=== PATIENT | male | born 1980 | race Caucasian/White ===

== ENCOUNTER 2018-12-22 16:03 | Inpatient (IN) ==
--- OUTSIDE RECORDS SUMMARY | 2018-12-22 16:06 | External Medical Summary | Continuity of Care Document ---
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) Raynaud's disease (443.0) (I73.00) Allergies and Adverse Reactions No Known Drug Allergies (Allergy) Medications Naproxen 500 MG Oral Tablet; TAKE TABLET PRN Refills: 0 Suboxone 12-3 MG Sublingual Film Start: 29-Sep-2015 Refills: 0 Procedures History of Oral Surgery Tooth Extraction Status: Completed Immunizations Immunizations not documented Family History Unknown Family Member Family history of Cancer Status: Active Comments: Famil y History Family history of Diabetes Mellitus (V18.0) Status: Active Comments: Family History Father Family history of Patient's father is in good health Status: Active Mother Family history of Patient's mother is in good health Status: Active Social History - Smoking Status Smoker. current status unknown Plan of Treatment Planned Observations Planned Goals not documented Results No Known Results Results not documented
--- NOTE | 2018-12-22 16:43 | Emergency Department Note ---
History of Present Illness General Chief complaint: Eye Problems Stated complaint: RIGHT EYE SWOLLEN Time Seen by Provider: 12/22/18 16:28 History of Present Illness Maximum Pain Intensity: 2 This is a 37-year-old male that presents to the emergency department via private vehicle with complaints of "right eye swollen". The patient states that yesterday he began with swelling around 6 PM on the right side of the face. He notes that he has poor dentition. He states that it is rapidly progressed and then when he awoke today the entire right eye was swollen. He did take Benadryl with some minimal swelling relief. He denies any trauma, injury, fevers, chills. He notes very minimal pain, noting that his only pain is in the mouth at a tooth that he thinks may have caused this but otherwise has no pain on the face. He denies any pain with moving the eyes. No vomiting. Home Medications Home Medications Medication Instructions Recorded Confirmed Type diphenhydramine HCl [Benadryl] 50 mg PO DIRECTED PRN 12/22/18 12/22/18 History Allergies Allergy/AdvReac Type Severity Reaction Status Date / Time bee venom protein (honey bee) Allergy Severe ANAPHYLAXIS Verified 12/22/18 16:34 Past Med/Surg History Medical History Pneumothorax on left (Resolved) Surgical History No pertinent past surgical history Social History Preferred Language: Surinamese Communication Ability: Effective Qa Tester Required: No Beliefs That Will Affect Care: None Current Living Situation: Family Other Information That Helps Us Care for You: No Feels Safe at Home: Yes Safety Concerns: Feels Safe At This Time Smoking Status: Current every day smoker Tobacco Type: cigarettes Cigarettes Per Day: 3-5 Do You Dip or Chew Tobacco: No Second Hand Exposure: No Tobacco Cessation Education Requested by Patient: No Hx Alcohol Use: No Hx Substance Use: No Review of Systems A total of 10 systems reviewed and were otherwise negative Physical Exam Vital Signs Vital Signs - 24 hr 12/22/18 16:06 12/22/18 17:30 12/22/18 18:30 Temperature 36.9 C Temperature Source Oral Sepsis Recent Fever Within 48 Hours No Sepsis New/Unexplained Change in Mental Status No Sepsis Action Taken by Nursing No Action Required Pulse Rate 87 Pulse Rate [Radial] 87 85 Pulse Rhythm [Radial] Regular Regular Pulse Strength Normal Respiratory Rate 18 18 18 Respiratory Effort / Characteristics Non-Labored Non-Labored Non-Labored Respiratory Depth Normal Normal Normal Respiratory Pattern Regular Regular Regular Blood Pressure 131/68 Blood Pressure [Left Arm] 111/68 115/72 Blood Pressure Mean 89 Blood Pressure Mean [Left Arm] 82 86 Blood Pressure Position Sitting Pulse Oximetry 98 98 97 Oxygen Delivery Method Room Air Room Air Room Air 12/22/18 20:00 Temperature Temperature Source Sepsis Recent Fever Within 48 Hours Sepsis New/Unexplained Change in Mental Status Sepsis Action Taken by Nursing Pulse Rate Pulse Rate [Radial] 74 Pulse Rhythm [Radial] Regular Pulse Strength Respiratory Rate 16 Respiratory Effort / Characteristics Non-Labored Respiratory Depth Normal Respiratory Pattern Regular Blood Pressure Blood Pressure [Left Arm] 107/66 Blood Pressure Mean Blood Pressure Mean [Left Arm] 79 Blood Pressure Position Pulse Oximetry 100 Oxygen Delivery Method Room Air VITAL SIGNS - Vital signs and nursing notes were reviewed. Stable and afebrile. GENERAL -37-year-old male appearing his stated age who is in no acute distress. Communicates well with provider and answers questions appropriately. SKIN -there is edema to the right side of the face noted extending from the right side of the mouth up to the inferior right eye region. No fluctuance. HEAD - NC/AT. EYES - PERRL with EOMI bilaterally. Sclera anicteric. No pain with EOMs noted. The right eye is unremarkable itself but the surrounding tissue is edematous inferiorly. EARS - No deformities of external structures noted on gross examination b ilaterally. No evidence of otitis media. NOSE - Midline and without cyanosis. No epistaxis or purulent drainage noted. Septum midline without deviation or septal hematoma noted. MOUTH/OROPHARYNX - Without perioral cyanosis. Buccal mucosa pink and moist and without leukoplakia. Tongue midline with equal elevation of palate bilaterally. No tonsillar hypertrophy, erythema, or exudates noted. Very poor dentition noted. There is no tenderness on the chin or neck region. No tenderness in the submental space on exam. NECK - Neck with FROM. Supple to palpation. No lymphadenopathy noted. No nuchal rigidity. LUNGS - Chest wall symmetric without accessory muscle use, intercostals retractions, or central cyanosis. Normal vesicular breath sounds CTA B/L. No wheezes, rales, or rhonchi appreciated. CARDIAC - RRR with S1/S2. No murmur, rubs, or gallops appreciated. EXTREMITIES - No clubbing or peripheral cyanosis. No pretibial edema present. +5/5 strength noted in UE/LE bilaterally. NEUROLOGIC - Cranial nerves II through XII grossly intact. PSYCH - A&O, and cooperates fully with examiner. Pt is very pleasant and interacts well with examiner. Course Administered Medications Clindamycin Phosphate 300 mg/ (Dextrose) 52 mls @ 100 mls/hr IV Q6H OSEI Stop: 01/02/19 00:00 Last Infusion: 12/23/18 00:44 Dose: 0 mls/hr Documented by: [id number] Admin: 12/23/18 00:02 Dose: 100 mls/hr Documented by: [id number] Discontinued Medications Sodium Chloride (Nss 1000ml) 1,000 mls @ 999 mls/hr IV .Q1H1M OSEI Stop: 12/22/18 17:45 Last Infusion: 12/22/18 18:26 Dose: 0 mls/hr Documented by: [id number] Admin: 12/22/18 17:19 Dose: 999 mls/hr Documented by: [id number] Ampicillin Sodium/Sulbactam Sodium 3,000 mg/ Sodium Chloride 108 mls @ 200 mls/hr IV NOW STA; Protocol Stop: 12/22/18 20:50 Last Infusion: 12/22/18 22:25 Dose: 0 mls/hr Documented by: [id number] Admin: 12/22/18 21:46 Dose: 200 mls/hr Documented by: [id number] Ioversol (Optiray 320 100ml) 94 ml IV ONCE PRN PRN Reason: Interaction Checking Stop: 12/26/18 19:15 Last Admin: 12/22/18 19:16 Dose: 94 ml Documented by: [id number] Medical Decision Making Laboratory Data Result diagrams: 12/22/18 17:18 12/22/18 17:18 Lab Results 12/22/18 12/22/18 Range/Units 17:18 17:18 WBC 8.21 (4.8-10.8) K/uL RBC 4.85 (4.7-6.1) M/uL Hgb 14.1 (14.0-18.0) g/dL Hct 40.7 L (42-52) % MCV 83.9 (80-100) fL MCH 29.1 (25-34) pg MCHC 34.6 (32-36) g/dL RDW Std Deviation 40.7 (36.4-46.3) fL RDW Coeff of Bashir 13.4 (11.5-14.5) % Plt Count 194 (130-400) K/uL MPV 9.7 (7.4-10.4) fL Immature Gran % (Auto) 0.1 % Neut % (Auto) 55.6 % Lymph % (Auto) 29.5 % [place] % (Auto) 11.0 % Eos % (Auto) 2.9 % Baso % (Auto) 0.9 % Immature Gran # (Auto) 0.01 (0.00-0.02) K/uL Neut # (Auto) 4.57 (1.4-6.5) K/uL Lymph # (Auto) 2.42 (1.2-3.4) K/uL [place] # (Auto) 0.90 H (0.11-0.59) K/uL Eos # (Auto) 0.24 (0-0.5) K/uL Baso # (Auto) 0.07 (0-0.2) K/uL Sodium 139 (136-145) mmol/L Potassium 3.8 (3.5-5.1) mmol/L Chloride 103 (98-107) mmol/L Carbon Dioxide 34 H (21-32) mmol/L Anion Gap 2.0 L (3-11) BUN 9 (7-18) mg/dl Creatinine 1.00 (0.6-1.4) mg/dl Est Cr Clr Drug Dosing 80.9 ml/min Est GFR ( Amer) 110.2 Est GFR (Non-Af Amer) 95.1 BUN/Creatinine Ratio 8.6 L (10-20) Glucose 90 (70-99) mg/dl Calcium 8.8 (8.5-10.1) mg/dl Total Bilirubin 0.5 (0.2-1) mg/dl AST 21 (15-37) U/L ALT 18 (12-78) U/L Alkaline Phosphatase 106 (45-117) U/L Total Protein 7.6 (6.4-8.2) gm/dl Albumin 3.9 (3.4-5.0) gm/dl Globulin 3.7 (2.5-4.0) gm/dl Albumin/Globulin Ratio 1.1 (0.9-2) Imaging Data Radiologist's Impression: CT SCAN OF THE FACIAL BONES WITH IV CONTRAST CLINICAL HISTORY: Right-sided facial edema. COMPARISON STUDY: No priors. TECHNIQUE: High-resolution CT scan of the facial bones is performed following the IV administration of 94 cc of Optiray 320. Images are reviewed in the axial, sagittal, and coronal planes. IV contrast was administered without complication. A dose lowering technique was utilized adhering to the principles of ALARA. CT DOSE: 128.22 mGy.cm FINDINGS: The skeletal structures are well mineralized. There is no evidence of facial bone fracture. The bony orbits are intact and the orbital contents are within normal limits. The zygomatic arches, nasal bones, and pterygoid plates are preserved. The maxilla and mandible are intact. There are no layering blood products within the paranasal sinuses. There is mild to moderate mucosal thickening within the maxillary antra bilaterally, right greater than left. Mild mucosal thickening is seen within the ethmoid sinuses. The remaining paranasal sinuses are clear. The mastoid air cells are well pneumatized. The visualized calvarium and upper cervical spine are maintained. Partially imaged brain parenchyma is within normal limits. The carotid arteries and jugular veins are patent bilaterally. There are numerous dental caries identified. There are large periapical lucencies identified throughout the maxilla involving the molars and premolars bilaterally, as well as the left incisors and bilateral canines. There is cortical breakthrough involving the mandibular molars bilaterally. There is extensive right-sided facial soft tissue edema which extends from the premalar region into the submandibular region. There is mild infiltration of the right sublingual and submental soft tissues. The parapharyngeal fat is maintained. There is phlegmonous change with no organized fluid collection seen to indicate abscess. The airway is clear. Mildly enlarged cervical lymph nodes are likely reactive basis. The salivary glands are normal in appearance. IMPRESSION: 1. There are numerous dental caries. Additionally, there are numerous periapical lucencies throughout the maxillary teeth. There is cortical breakthrough involving the molars bilaterally. Follow-up with dentistry is recommended. 2. There is evidence of extensive right facial cellulitis, likely related to periodontal disease. 3. There is slight no change with no organized fluid collection seen to indicate abscess. 4. There is mild inflammatory stranding involving the right sublingual and submental soft tissues. This may place the patient risk for developing Dakotah's angina. Clinical correlation will be essential. Electronically signed by: Sohail Sepulveda M.D. 12/22/2018 8:06 PM MDM Narrative Patient was seen and evaluated as above in room B3. Review was performed of nursing notes and vital signs. After obtaining a thorough history and physical examination the above work up was performed. He presents to us today with right eye swelling inferiorly. On exam there is concern for facial cellulitis with pending orbital involvement. His vital signs are stable. IV access was established. There is no leukocytosis or emergent anemia. There is no emergent metabolic abnormality. IV Unasyn was ordered. I recommended inpatient management given the extent of the facial cellulitis both on exam and CT. He was in agreement with staying. I talked with the hospitalist. They will admit the patient. These refer to further documentation regarding his stay. In the evaluation and treatment of this patient, the following differential diagnoses were considered: Periapical Abscess, Osteonecrosis of the Jaw, Dental Fracture, Dental Caries, Dakotah's Angina, Vincent's Angina, Facial Cellulitis. Impression & Plan Right facial swelling, Periodontal disease, Cellulitis of face Discharge Plan Visit Data *Final* Discharge Date/Time: 12/22/18 22:31 Chief Complaint: Eye Problems Stated Complaint: RIGHT EYE SWOLLEN ED Provider: Paresh Hidalgo ED Midlevel Provider: Manan Overton Discharge Problem: Right facial swelling, Periodontal disease, Cellulitis of face Patient Disposition: Admitted As Inpatient Condition: Good Discharge Instructions Interventions: ED Discharge Assessment Last Done: 12/22/18 22:31
[2018-12-22] MEDS ORDERED: SODIUM CHLORIDE 0.9% 1000ML 1,000 ML IV SCH (16:45)
[2018-12-22 17:24] LABS: Basophils # (auto) 0.07 K/uL (0-0.2); Basophils % (auto) 0.9 %; Eosinophils # (auto) 0.24 K/uL (0-0.5); Eosinophils % (auto) 2.9 %; Hematocrit (blood only) 40.7 % (42-52); Hemoglobin 14.1 g/dL (14.0-18.0); Immature Granulocytes # (auto) 0.01 K/uL (0.00-0.02); Immature Granulocytes % (auto) 0.1 %; Lymphocytes # (auto) 2.42 K/uL (1.2-3.4); Lymphocytes % (auto) 29.5 %; Mean Corpuscular Hgb Conc 34.6 g/dL (32-36); Mean Corpuscular Volume 83.9 fL (80-100); Mean Platelet Volume 9.7 fL (7.4-10.4); Neutrophils # (auto) 4.57 K/uL (1.4-6.5); Neutrophils % (auto) 55.6 %; Platelet Count 194 K/uL (130-400); RDW Coefficient of Variation 13.4 % (11.5-14.5); RDW Standard Deviation 40.7 fL (36.4-46.3); Red Blood Count 4.85 M/uL (4.7-6.1); White Blood Count 8.21 K/uL (4.8-10.8)
[2018-12-22 17:45] LABS: Albumin Level 3.9 gm/dl (3.4-5.0); BUN Creatinine Ratio 8.6 (10-20); Calcium 8.8 mg/dl (8.5-10.1); Creatinine Clr Calc Pharmacy 80.9 ml/min; Est GFR (African American) 110.2; Est GFR (Non-African American) 95.1; Potassium 3.8 mmol/L (3.5-5.1)
[2018-12-22 17:48] LABS: Albumin Globulin Ratio 1.1 (0.9-2); Bilirubin,Total 0.5 mg/dl (0.2-1); Globulin 3.7 gm/dl (2.5-4.0); Total Protein 7.6 gm/dl (6.4-8.2)
[2018-12-22] MEDS ORDERED: IOVERSOL 100ml IV PRN (19:16)
--- NOTE | 2018-12-22 20:08 | CT Scan Report ---
CT SCAN OF THE FACIAL BONES WITH IV CONTRAST CLINICAL HISTORY: Right-sided facial edema. COMPARISON STUDY: No priors. TECHNIQUE: High-resolution CT scan of the facial bones is performed following the IV administration of 94 cc of Optiray 320. Images are reviewed in the axial, sagittal, and coronal planes. IV contrast was administered without complication. A dose lowering technique was utilized adhering to the princi ples of PAYAM. CT DOSE: 128.22 mGy.cm FINDINGS: The skeletal structures are well mineralized. There is no evidence of facial bone fracture. The bony orbits are intact and the orbital contents are within normal limits. The zygomatic arches, nasal bones, and pterygoid plates are preserved. The maxilla and mandible are intact. There are no la yering blood products within the paranasal sinuses. There is mild to moderate mucosal thickening with in the maxillary antra bilaterally, right greater than left. Mild mucosal thickening is seen within t he ethmoid sinuses. The remaining paranasal sinuses are clear. The mastoid air cells are well pneumat ized. The visualized calvarium and upper cervical spine are maintained. Partially imaged brain parenc hyma is within normal limits. The carotid arteries and jugular veins are patent bilaterally. There ar e numerous dental caries identified. There are large periapical lucencies identified throughout the m axilla involving the molars and premolars bilaterally, as well as the left incisors and bilateral can kinga. There is cortical breakthrough involving the mandibular molars bilaterally. There is extensive right-sided facial soft tissue edema which extends from the premalar region into the submandibular re gion. There is mild infiltration of the right sublingual and submental soft tissues. The parapharynge al fat is maintained. There is phlegmonous change with no organized fluid collection seen to indicate abscess. The airway is clear. Mildly enlarged cervical lymph nodes are likely reactive basis. The sa livary glands are normal in appearance. IMPRESSION: 1. There are numerous dental caries. Additionally, there are numerous periapical lucencies throughout the maxillary teeth. There is cortical breakthrough involving the molars bilaterally. Follow-up with dentistry is recommended. 2. There is evidence of extensive right facial cellulitis, likely related to periodontal disease. 3. There is slight no change with no organized fluid collection seen to indicate abscess. 4. There is mild inflammatory stranding involving the right sublingual and submental soft tissues. Th is may place the patient risk for developing Dakotah's angina. Clinical correlation will be essential. Electronically signed by: Sohail Sepulveda M.D. 12/22/2018 8:06 PM
[2018-12-22] MEDS ORDERED: AMPICILLIN/SULBACTAM SOD 3,000 MG in 0.9 % SODIUM CHLORIDE 100 ML IV STA (20:18)
--- NOTE | 2018-12-22 21:25 | History & Physical Report ---
Date of Service December 22, 2018 Assessment & Plan (1) Preseptal cellulitis of right eye: 37-year-old male who presents with 1 day history of right facial swelling found to have preseptal cellulitis and significant periodontal disease admitted for IV antibiotics. Face CT shows no abscess. Cellulitis of face, preseptal, likely secondary to periodontal disease -Although presents with preseptal cellulitis and right facial swelling, patient's airway does not seem to be involved and pain is clinically absent. -Patient is not febrile, no leukocytosis, not hypoxic,, not in pain -Plan for IV antibiotics including clindamycin and ceftriaxone -Will need dentistry follow-up in the outpatient setting -Consider ENT/ID evaluation if does not respond to antibiotics. FEN/GI: Regular diet DVT ppx: Lovenox every 12 CODE STATUS: Full code as discussed with patient DISPO: MedSurg. To home on discharge. DC planning ordered to help with follow- up dentistry (2) Periodontal disease: (3) Right facial swelling: History of Present Illness Chief Complaint: Swelling around right eye, periodontal disease untreated Primary Care Provider: NO PCP Isaias is a 37-year-old male who presents with 1 day history of swelling and redness around his right eye. He states that he noticed a tightness in in the right side of his face since yesterday, and that this morning his right eye was almost swollen shut. He admits to problems with dental disease in the past, has had at least 3 teeth pulled and several others have fallen or broken off independently. He states that from time to time he has had facial swelling that he assumed was due to his teeth, that has self resolved in the past. He denies any change in his vision. He denies any pain associated with the swelling including no eye pain no dental pain no throat pain or neck pain. He has had no fevers at home. He denies any headaches. Denies any difficulty breathing or weakness in his extremities. His appetite is normal. ED course: Unasyn IV x1. Face CT showing right facial cellulitis with no abscess. Past medical history: Teeth extractions. He is on no medications. Surgical history: As above. Social history: He lives with his girlfriend. He denies alcohol use or illicit drug use. He smokes 1 to 2 cigarettes/day. He is self-employed. 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 Beliefs That Will Affect Care: None Current Living Situation: Family Other Information That Helps Us Care for You: No Feels Safe at Home: Yes Safety Concerns: Feels Safe At This Time Smoking Status: Current every day smoker Tobacco Type: cigarettes Cigarettes Per Day: 3-5 Do You Dip or Chew Tobacco: No Second Hand Exposure: No Tobacco Cessation Education Requested by Patient: No Hx Alcohol Use: No Hx Substance Use: No Review of Systems Review of Systems: All systems reviewed & are unremarkable except as noted in HPI & below Physical Exam Physical Exam: His girlfriend accompanies him at the bedside. Vitals noted and within normal limits GENERAL: Awake, alert to person, place, and time, nontoxic-appearing, in no distress. HENT: Right-sided facial swelling noted, atraumatic. Mucus membranes appear moist. Very poor dentition with several teeth absent. Uvula is not displaced, no tonsillar swelling, pharynx is within normal limits. EYES: Normal conjunctiva. Sclera non-icteric. EOMI. PERRLA. NECK: Supple. Full range of motion. No JVD. No palpable lymphadenopathy. RESPIRATORY: Clear to auscultation. Normal work of breathing. CARDIAC: Regular rate, normal rhythm. Extremities warm and well perfused, 2+ radial pulses bilaterally; 2+ posterior tibialis pulses bilaterally. ABDOMEN: Soft, non-distended. No tenderness to palpation in all four quadrants. No rebound or guarding. No masses. Bowel sounds are normal. NEURO: No gross focal motor deficits noted. Sensation in tact. CN II-XII grossly in tact. . SKIN: Mildly erythematous and swelling noted in the right periorbital space as well as his right cheek, no fluctuance. No jaundice noted. PSYCH: Appropriate mood and affect. Cooperative. Exam as done by Cleo Pool MD, Telephone Directory Distributor Driver. Results & Data Vital Signs (Past 12 Hours) Vital Signs Temp Pulse Pulse Resp BP BP Pulse Ox 12/22/18 18:30 85 18 115/72 97 12/22/18 17:30 87 18 111/68 98 12/22/18 16:06 36.9 C 87 18 131/68 98 Laboratory Results 12/22/18 12/22/18 Range/Units 17:18 17:18 WBC 8.21 (4.8-10.8) K/uL RBC 4.85 (4.7-6.1) M/uL Hgb 14.1 (14.0-18.0) g/dL Hct 40.7 L (42-52) % MCV 83.9 (80-100) fL MCH 29.1 (25-34) pg MCHC 34.6 (32-36) g/dL RDW Std Deviation 40.7 (36.4-46.3) fL RDW Coeff of Bashir 13.4 (11.5-14.5) % Plt Count 194 (130-400) K/uL MPV 9.7 (7.4-10.4) fL Immature Gran % (Auto) 0.1 % Neut % (Auto) 55.6 % Lymph % (Auto) 29.5 % [place] % (Auto) 11.0 % Eos % (Auto) 2.9 % Baso % (Auto) 0.9 % Immature Gran # (Auto) 0.01 (0.00-0.02) K/uL Neut # (Auto) 4.57 (1.4-6.5) K/uL Lymph # (Auto) 2.42 (1.2-3.4) K/uL [place] # (Auto) 0.90 H (0.11-0.59) K/uL Eos # (Auto) 0.24 (0-0.5) K/uL Baso # (Auto) 0.07 (0-0.2) K/uL Sodium 139 (136-145) mmol/L Potassium 3.8 (3.5-5.1) mmol/L Chloride 103 (98-107) mmol/L Carbon Dioxide 34 H (21-32) mmol/L Anion Gap 2.0 L (3-11) BUN 9 (7-18) mg/dl Creatinine 1.00 (0.6-1.4) mg/dl Est Cr Clr Drug Dosing 80.9 ml/min Est GFR ( Amer) 110.2 Est GFR (Non-Af Amer) 95.1 BUN/Creatinine Ratio 8.6 L (10-20) Glucose 90 (70-99) mg/dl Calcium 8.8 (8.5-10.1) mg/dl Total Bilirubin 0.5 (0.2-1) mg/dl AST 21 (15-37) U/L ALT 18 (12-78) U/L Alkaline Phosphatase 106 (45-117) U/L Total Protein 7.6 (6.4-8.2) gm/dl Albumin 3.9 (3.4-5.0) gm/dl Globulin 3.7 (2.5-4.0) gm/dl Albumin/Globulin Ratio 1.1 (0.9-2) Diagnostic Findings Face CT notes numerous dental caries, numerous periapical lucencies throughout the maxillary teeth. Cortical breakthrough involving molars bilaterally. Evidence of right facial cellulitis. No organized fluid collection to indicate abscess. Mild inflammatory stranding involving right sublingual and submental soft tissues which may place the patient at risk for developing Dakotah's angina. Dentistry follow-up recommended. Medications Administered Received Unasyn in the ED. Supervising Physician Co-Signing Physician Notes Attending addendum: I have physically seen this patient, have supervised the medical residents activities, and agree with the H&P unless as otherwise noted. Assessment and Plan: Right facial cellulitis/periodontal disease/dental caries/right sublingual and submental inflammation- Given Unasyn 3 g IV x1 in the ED plus normal saline 1 L. Admit on ceftriaxone and clindamycin IV. Follow clinical examination closely. Patient will need to follow-up with ENT/maxillofacial surgery. Dehydration-give additional liter of normal saline. Remainder orders and notations as noted. PG Care Time/CCT Total # of Minutes Spent Total Time Spent with Patient: Total time spent is greater than 50% in coordination of care (as documented) at patient's floor/unit and/or counseling patient: Resident Activity Tracking Resident Involvement: Resident Care Provided Care Provided: Adult [facility] Medicine
[2018-12-22] MEDS ORDERED: MAGNESIUM HYDROXIDE SUSP 30 ML UDC PO PRN (22:41)
[2018-12-22] MEDS ORDERED: POLYETHYLENE (MIRALAX) 17 GM PACK PO PRN (22:41)
[2018-12-22] MEDS ORDERED: ONDANSETRON INJ 2 MG/ML 2 ML VIAL IV PRN (22:41)
[2018-12-22] MEDS ORDERED: ALUMINUM/MAGNESIUM SUSP 30 ML UDC PO PRN (22:41)
[2018-12-22] MEDS ORDERED: ACETAMINOPHEN 325 MG TAB PO PRN (22:41)
[2018-12-23] MEDS: CLINDAMYCIN 300 MG in DEXTROSE 5% 50 ML IV SCH ×3 (00:02→12:19)
[2018-12-23 05:40] LABS: Basophils # (auto) 0.05 K/uL (0-0.2); Basophils % (auto) 0.6 %; Eosinophils # (auto) 0.29 K/uL (0-0.5); Eosinophils % (auto) 3.6 %; Hematocrit (blood only) 36.7 % (42-52); Hemoglobin 12.3 g/dL (14.0-18.0); Immature Granulocytes # (auto) 0.02 K/uL (0.00-0.02); Immature Granulocytes % (auto) 0.2 %; Lymphocytes # (auto) 2.25 K/uL (1.2-3.4); Lymphocytes % (auto) 27.9 %; Mean Corpuscular Hgb Conc 33.5 g/dL (32-36); Mean Corpuscular Volume 85.9 fL (80-100); Mean Platelet Volume 9.8 fL (7.4-10.4); Monocytes % (auto) 12.4 %; Neutrophils # (auto) 4.45 K/uL (1.4-6.5); Neutrophils % (auto) 55.3 %; Platelet Count 197 K/uL (130-400); RDW Coefficient of Variation 13.7 % (11.5-14.5); RDW Standard Deviation 42.7 fL (36.4-46.3); Red Blood Count 4.27 M/uL (4.7-6.1); White Blood Count 8.06 K/uL (4.8-10.8)
[2018-12-23 05:49] LABS: Prothrombin Time 10.7 Seconds (9.0-12.0)
[2018-12-23 06:09] LABS: BUN Creatinine Ratio 8.2 (10-20); Calcium 7.9 mg/dl (8.5-10.1); Creatinine Clr Calc Pharmacy 90.8 ml/min; Est GFR (African American) 121.9; Est GFR (Non-African American) 105.1; Potassium 3.4 mmol/L (3.5-5.1)
[2018-12-23] MEDS: LACTOBACILLUS ACIDOPHILUS (FLORANEX) TAB PO SCH ×2 (08:33→12:20)
[2018-12-23] MEDS ORDERED: cefTRIAXone SODIUM 1,000 MG in DEXTROSE 5% 50 ML IV SCH (09:00)
[2018-12-23] MEDS ORDERED: ENOXAPARIN INJ 40 MG/0.4 ML SYR SQ SCH (09:00)
--- NOTE | 2018-12-23 09:19 | Hospitalist Progress Note ---
Date of Service December 23, 2018 Assessment & Plan (1) Preseptal cellulitis of right eye: (2) Periodontal disease: (3) Right facial swelling: Results & Data Vital Signs (Past 12 Hours) Vital Signs Temp Pulse Pulse Pulse Resp BP BP 12/23/18 07:23 36.6 C 71 20 12/23/18 02:08 36.8 C 79 16 12/22/18 22:45 36.9 C 68 20 109/70 12/22/18 22:31 65 16 114/70 12/22/18 22:00 62 18 117/72 BP Pulse Ox 12/23/18 07:23 104/65 98 12/23/18 02:08 101/60 98 12/22/18 22:45 98 12/22/18 22:31 99 12/22/18 22:00 100 PG Care Time/CCT Total # of Minutes Spent Total Time Spent with Patient: Total time spent is greater than 50% in coordination of care (as documented) at patient's floor/unit and/or counseling patient:
[2018-12-23] MEDS ORDERED: POTASSIUM CHLORIDE 10 MEQ TABCR PO ONE (09:45)
--- NOTE | 2018-12-23 14:58 | Discharge Summary ---
Date of Service December 23, 2018 Admission HPI Per Admitting Provider Isaias is a 37-year-old male who presents with 1 day history of swelling and redness around his right eye. He states that he noticed a tightness in in the right side of his face since yesterday, and that this morning his right eye was almost swollen shut. He admits to problems with dental disease in the past, has had at least 3 teeth pulled and several others have fallen or broken off independently. He states that from time to time he has had facial swelling that he assumed was due to his teeth, that has self resolved in the past. He denies any change in his vision. He denies any pain associated with the swe lling including no eye pain no dental pain no throat pain or neck pain. He has had no fevers at home. He denies any headaches. Denies any difficulty breathing or weakness in his extremities. His appetite is normal. ED course: Unasyn IV x1. Face CT showing right facial cellulitis with no abscess. Past medical history: Teeth extractions. He is on no medications. Surgical history: As above. Social history: He lives with his girlfriend. He denies alcohol use or illicit drug use. He smokes 1 to 2 cigarettes/day. He is self-employed. Admission Exam Per Admitting Provider Physical Exam: His girlfriend accompanies him at the bedside. Vitals noted and within normal limits GENERAL: Awake, alert to person, place, and time, nontoxic-appearing, in no distress. HENT: Right-sided facial swelling noted, atraumatic. Mucus membranes appear moist. Very poor dentition with several teeth absent. Uvula is not displaced, no tonsillar swelling, pharynx is within normal limits. EYES: Normal conjunctiva. Sclera non-icteric. EOMI. PERRLA. NECK: Supple. Full range of motion. No JVD. No palpable lymphadenopathy. RESPIRATORY: Clear to auscultation. Normal work of breathing. CARDIAC: Regular rate, normal rhythm. Extremities warm and well perfused, 2+ radial pulses bilaterally; 2+ posterior tibialis pulses bilaterally. ABDOMEN: Soft, non-distended. No tenderness to palpation in all four quadrants. No rebound or guarding. No masses. Bowel sounds are normal. NEURO: No gross focal motor deficits noted. Sensation in tact. CN II-XII grossly in tact. . SKIN: Mildly erythematous and swelling noted in the right periorbital space as well as his right cheek, no fluctuance. No jaundice noted. PSYCH: Appropriate mood and affect. Cooperative. Exam as done by Cleo Pool MD, Import/Export Analyst. Principal Diagnosis Right facial cellulitis likely 2nd to maxillary periodontal disease Discharge Exam General: awake, alert, no apparent distress Head: Normocephalic, atraumatic, ENT: PERRL, EOMI, no periorbital edema, + trace right facial edema compared to the left, no pharyngeal exudate, mucous membranes moist, + multiple dental caries, + pinpoint aphthous ulceration on the right buccal membrane, no areas of oral erythema, abscess, or purulent drainage. Chest: Clear to auscultation, on room air, no adventitious breath sounds Cardiac: Regular rate and rhythm, no murmur, no JVD, normal peripheral pulses, good capillary refill Abdominal: NABS x 4 quadrants, soft, nontender to palpation, no rebound, guarding or tenderness Extremities: Normal inspection, no peripheral edema or erythema, calfs nontender to palpation Psych: Normal mood and affect Neuro: AAO x 3, strength intact bilaterally and related 5/5, no motor deficits, speech is clear, no peripheral sensory deficits Discharge Data Allergies Allergy/AdvReac Type Severity Reaction Status Date / Time bee venom protein (honey bee) Allergy Severe ANAPHYLAXIS Verified 12/22/18 16:34 Consultations 12/22/18 20:18 ED Decision to Admit Stat 12/22/18 22:41 Consult Case Management - Discharge Planning Routine Ordered Studies 12/22/18 16:39 CT facial bones w con Stat Hospital Course (1) Periodontal disease: (2) Right facial swelling: (3) Tobacco use: (4) Preseptal cellulitis of right eye: - Clinically improved with IV clindamycin and ceftriaxone - no issues with swallowing, breathing, edema markedly improved. - Continue taking augmentin as directed x next 7 days, first dose starts on 12/24/18. - Referral and application provided to see [facility] for dentistry assistance. - Tobacco cessation encouraged Total Time Total Time Spent Total Time Spent (In Minutes): > 30 minutes Discharge Plan Discharge Items Patient Disposition: Home - Self-Care Reason For Visit: PRESEPTAL CELLULITIS Discharge Diagnosis: Preseptal Cellulitis Condition: Good Discharge Goals: Decrease discomfort, Improve disease control, Improve function and Prevent disease Activity: Resume your previous activity Lifting: Gradually increase as tolerated Bathing: No limitations Exercise/Sports: Gradually increase as tolerated Driving/Machine Use: No limitations Non-emergency contact: Primary Care Provider Call non-emergency contact if: you have any medication questions, your symptoms worsen, your pain is not controlled, you have a fever and your temperature is above 100.5 Follow-up/Referrals: PCP,NO [Primary Care Provider] - Diet: Regular Addtl Provider Instructions: You were admitted to [facility] due to preseptal cellulitis and diagnosed with the same During your stay here you were treated with supportive care, medications including intravenous antibiotics of clindamycin and ceftriaxone and your symptoms improved. Imaging studies which were completed include CT of the face which showed multiple dental cavities and right side of the face skin infection. It is very important to follow up with a dentist after you are discharged from the hospital! An application to see [facility] in [facility] is being provided to you to get a primary care provider STOP smoking cigarettes! Medications: Continue taking you medications as prescribed Please take antibiotics for cellulitis as directed: 1 tablet Augmentin 875 mg, twice daily x 7 days Eat a yogurt daily, like Activia, with active cultures and probiotics, to help with keeping the good bacteria in your gut while taking the antibiotic for your infection. Appointments: Follow up with [facility] in [facility] to establish a PCP, you will need to call them and discuss the guidelines, then set up an intake appointment. - Dentistry is available at this location. Prescriptions: New amoxicillin-pot clavulanate [Augmentin] 875-125 mg tablet 1 tab PO BID Qty: 14 RF: 0 Continued diphenhydramine HCl [Benadryl] 25 mg Capsule 50 mg PO DIRECTED PRN (Reason: Allergy Symptoms) RF: 0 Visit Report Forms: Smoking Cessation Stand-Alone Forms: My [facility] [employer], Work/School Release (Inpt) Discharge Orders: Discharge Order (Routine); Ordered 12/23/18 Ordered By: Kamilah Oneal Admission Data Admit Date/Time: 12/22/18 21:31 Attending Provider: Obed Horn Admit Provider: Cleo Pool Primary Care Provider: PCP,NO Other Providers: Obed Horn Service: Medical Other Interventions: Discharge Summary Assessment (RN) Last Done: 12/23/18 16:55 Pending Studies at Discharge: Yes (Blood cultures) DC Date/Time DO NOT enter until pt leaves facility: 12/23/18 18:02 Supervising Physician Co-Signing Physician Notes Attending Discharge Note and Attestation: Pt seen/examined, chart reviewed, care plan d/w ZAHRA Oneal. I agree w/ the mcnamara components of her discharge summary. 37yo male with history of bee-sting allergy and poor dentition who presented with <24 hours of right facial swelling leading to right eye swelling. Facial CT at time of ER presentation showed severe periodontal disease and dental caries of the maxillary teeth along with right facial cellulitis. There was no evidence of orbit infection. He was started on IV antibiotics and within 24 hours of admission his right eye swelling was nearly all resolved. Right facial swelling over the right maxillary area also improved significantly during his brief stay. He never had tooth pain, dysphagia, or respiratory symptoms. Denies any recent bee or insect sting. Discharge exam - gen - thin, muscle wasting of face mouth - numerous dental carries and poor dentition; posterior pharynx clear HEENT - right maxillary region with mild swelling but no tenderness, erythema, or warmth; left maxillary sinus region wnl; right eye - scant swelling of lids but normal globe/eye otherwise; EOMI; PERRL heart - RRR, s1 s2 lungs - CTA b/l Imp: right facial cellulitis likely 2nd to periodontal disease. dental carries. NO evidence of Dakotah's angina clinically. doubt he ever had true periorbital cellulitis of right eye (it typically does not resolve in 24 hours). bee-sting allergy. Plan: augmentin x 10 days. may need longer course. see dentist VARSHA to prevent recurrent infections - needs significant dental work. patient needs to secure epi-pen in the event of bee-sting given prior h/o anaphylaxis - instructed to go to [employer] to find out about patient assistance program. patient to f/u with [facility] given lack of health insurance - information given for [facility] clinic. Mani Pozo MD
== END 2018-12-23 18:02 | disposition home or self-care (01) | DRG 603 ==
LOC: ED 16:03 → 4W 21:31